=== PATIENT | female | born 1985 | race American Indian/Alaskan Native ===

== ENCOUNTER 2018-07-09 08:33 | Emergency (ER) | payer OTHER ==
[2018-07-09 09:18] LABS: Basophils % (Auto) 0.4 % (0.0-1.8); Eosinophils % (Auto) 0.6 % (0.0-4.3); Hematocrit 33.1 % (30.3-42.9); Hemoglobin 11.2 gm/dl (10.1-14.3); Lymphocytes # (Auto) 1.9 K/mm3 (1.2-5.4); Lymphocytes % (Auto) 24.7 % (13.4-35.0); Mean Corpuscular HGB Conc 34 % (30-34); Mean Corpuscular Hemoglobin 27 pg (28-32); Mean Corpuscular Volume 78 fl (79-97); Monocytes # (Auto) 0.8 K/mm3 (0.0-0.8); Monocytes % (Auto) 9.9 % (0.0-7.3); Platelet Count 251 K/mm3 (140-440); Red Blood Count 4.24 M/mm3 (3.65-5.03); Red Cell Distribution Width 14.8 % (13.2-15.2)
[2018-07-09 09:39] LABS: Bilirubin,Urine NEG (Negative); Blood,Urine SM (Negative); Color,Urine Yellow (Yellow); Mucus,Urine FEW /HPF
[2018-07-09 09:44] VITALS: BP 136/91
--- NOTE | 2018-07-09 10:14 | Emergency Department Report ---
HPI - General Chief Complaint: Vaginal Bleeding Time Seen by Provider: 07/09/18 09:53 - HPI HPI: 33-year-old -[place] female presents to the emergency department with complaint of some vaginal bleeding while that started earlier today, about 4 AM. She says that it stopped prior to coming into the emergency department but then started up again once she arrived here. She says it is a mild amount but sometimes when she goes to urinate she will have some clots come out. She denies any significant abdominal or pelvic pain but occasionally has some mild cramping intermittently. She says that the cramping intensity is less than her usual menstrual cycles. Patient does have a history of hypertension and/or questionable preeclampsia and is on labetalol and nifedipine. With this she is with one live child. Her [facility] is [facility]. She takes vitamins. ED Past Medical Hx - Past Medical History Previous Medical History?: Yes Hx Hypertension: Yes - Surgical History Past Surgical History?: Yes Additional Surgical History: c section x 1 - Social History Smoking Status: Never Smoker Substance Use Type: None - Medications Home Medications: Home Medications Medication Instructions Recorded Confirmed Last Taken Type Cyclobenzaprine HCl [Flexeril] 10 mg PO QDAY #15 tablet 10/30/13 Unknown Rx Ibuprofen [Motrin 800 MG tab] 800 mg PO TID PRN #15 tablet 10/30/13 Unknown Rx Lisinopril/Hydrochlorothiazide 1 tab PO QDAY #30 tablet 10/30/13 Unknown Rx [Zestoretic 10-12.5 mg] oxyCODONE /ACETAMINOPHEN [Percocet 1 tab PO Q6HR PRN #15 tablet 10/30/13 Unknown Rx 5/325 mg] ED Review of Systems ROS: Stated complaint: /BLEEDING Other details as noted in HPI Comment: All other systems reviewed and negative Constitutional: denies: chills, fever Eyes: denies: eye pain, eye discharge, vision change ENT: denies: ear pain, throat pain Respiratory: denies: cough, shortness of breath, wheezing Cardiovascular: denies: chest pain, palpitations Gastrointestinal: denies: abdominal pain, nausea, diarrhea Genitourinary: other (vaginal bleeding). denies: dysuria, discharge Musculoskeletal: denies: back pain, joint swelling, arthralgia Skin: denies: rash, lesions Neurological: denies: headache, weakness, paresthesias Physical Exam - Physical Exam Vital Signs: Vital Signs 07/09/18 07/09/18 07/09/18 08:46 09:26 09:30 Temperature 99.4 F Pulse Rate 98 H Respiratory 18 Rate Blood Pressure 152/100 136/91 O2 Sat by Pulse 100 94 98 Oximetry Physical Exam: GENERAL: The patient is well-developed well-nourished. HENT: Normocephalic. Atraumatic. Patient has moist mucous membranes. EYES: Extraocular motions are intact. Pupils equal reactive to light bilaterally. NECK: Supple. Trachea is midline. CHEST/LUNGS: Clear to auscultation. There is no respiratory distress noted. HEART/CARDIOVASCULAR: Regular. There is no tachycardia. There is no murmur. ABDOMEN: Abdomen is soft, nontender. No guarding. Patient has normal bowel sounds. Obese habitus. SKIN: Skin is warm and dry. NEURO: The patient is awake, alert, and oriented. The patient is cooperative. The patient has no focal neurologic deficits. The patient has normal speech. MUSCULOSKELETAL: There is no tenderness or deformity. There is no limitation range of motion. There is no evidence of acute injury. ED Course Vital Signs 07/09/18 07/09/18 07/09/18 08:46 09:26 09:30 Temperature 99.4 F Pulse Rate 98 H Respiratory 18 Rate Blood Pressure 152/100 136/91 O2 Sat by Pulse 100 94 98 Oximetry ED Medical Decision Making - Lab Data Result diagrams: 07/09/18 09:04 - Radiology Data Radiology results: report reviewed EXAM: US OB gt; = 14 WEEKS FETUS HISTORY: , vag bleeding TECHNIQUE: Ultrasound evaluation of the gravid uterus PRIORS: None. FINDINGS: There is a single viable intrauterine with documented cardiac activity. Multiple ultrasound measurements are made to determine a composite gestational age. Nonspecific elevation of cephalic index at 85.1, upper limits of normal 83. Other ratios are within normal limits. There is no evidence of placenta previa or abruption. The maternal cervix is closed. The quantity of visualized amniotic fluid appears grossly normal. No sonographic abnormality in the visualized portion of the anatomy. Heart rate: 152 beats per minute position: Variable Placental position: Anterior, grade 0. Anterior placenta appears normal. There appears to be a nonspecific exophytic lobe of placenta posteriorly, from the posterior uterine wall by amniotic fluid. Possible accessory lobe of placenta is approximately 3.2 x 6.9 x 7.0 cm. This lobe appears to contain only peripheral blood flow. Differential for above described findings is fundal and posterior extension of placenta with a prominent retroplacental Sanchez. Maternal cervix average length: 3.2cm Ultrasound estimated gestational age: 15 week 6 days Ultrasound estimated delivery date: 12/25/2018 LMP estimated gestational age: 15 weeks 3 days LMP estimated delivery date: 12/28/2018 Maternal right ovary contains a nonspecific simple appearing cyst measuring 3 cm. This may be a corpus luteum. IMPRESSION: Single viable intrauterine with the above parameters Nonspecific elevation of cephalic index. Otherwise normal ratios 3 cm nonspecific simple appearing cyst in maternal right ovary may be a corpus luteum Nonspecific atypical placenta configuration posteriorly may reflect fundal and posterior lobe of placenta with prominent retro placental Sanchez. Differential includes anterior placenta with exophytic posterior lobe not contacting the uterine wall. Another possibility is large endometrial polyp. Followup may be useful Transcribed By: BAL Dictated By: CARMEN MCKINNEY MD Electronically Authenticated By: CARMEN MCKINNEY MD Signed Date/Time: 07/09/18 2382 - Medical Decision Making This patient presents with some mild vaginal bleeding that started last night. A little bit of pelvic cramping but no significant abdominal or pelvic sharp pains. Hemoglobin is stable at greater than 11. Vital signs stable throughout her ED course. Ultrasound shows a viable intrauterine at about 15 weeks and 3 days. There are some other nonspecific findings but nothing that shows any concern for the fetus at this time. Patient 's blood type was B+ and therefore no RhoGAM shot necessary. She has good follow-up with [facility] and has been encouraged to see them on Wednesday. She will return to the ER with any worsening of her symptoms or any acute distress. - Differential Diagnosis threatened miscarriage, , fibroids, spontaneous miscarriage Critical Care Time: No Critical care attestation.: If time is entered above; I have spent that time in minutes in the direct care of this critically ill patient, excluding procedure time. ED Disposition Clinical Impression: Threatened Qualifiers: Weeks of gestation: 15 weeks Qualified Code(s): Z3A.15 - 15 weeks gestation of Disposition: DC-01 TO HOME OR SELFCARE Is pt being admited?: No Condition: Stable Instructions: Threatened Miscarriage (ED), (ED) Additional Instructions: Please follow-up with your [facility] in the next few days. Return to the emergency department immediately with any worsening of her symptoms, increased vaginal bleeding, or with any acute distress. Continue with your vitamins. Referrals: [facility] [Provider Group] - [facility] Time of Disposition: 12:09
--- NOTE | 2018-07-09 11:59 | Ultrasound Report ---
FINAL REPORT EXAM: US OB > = 14 WEEKS FETUS HISTORY: , vag bleeding TECHNIQUE: Ultrasound evaluation of the gravid uterus PRIORS: None. FINDINGS: There is a single viable intrauterine with documented cardiac activity. Multiple ultrasound measurements are made to determine a composite gestational age. Nonspecific elevation of cephalic index at 85.1, upper limits of normal 83. Other ratios are within normal limits. There is no evidence of placenta previa or abruption. The maternal cervix is closed. The quantity of visualized amniotic fluid appears grossly normal. No sonographic abnormality in the visualized portion of the anatomy. Heart rate: 152 beats per minute position: Variable Placental position: Anterior, grade 0. Anterior placenta appears normal. There appears to be a nonspecific exophytic lobe of placenta posteriorly, from the posterior uterine wall by amniotic fluid. Possible accessory lobe of placenta is approximately 3.2 x 6.9 x 7.0 cm. This lobe appears to contain only peripheral blood flow. Differential for above described findings is fundal and posterior extension of placenta with a prominent retroplacental Sanchez. Maternal cervix average length: 3.2cm Ultrasound estimated gestational age: 15 week 6 days Ultrasound estimated delivery date: 12/25/2018 LMP estimated gestational age: 15 weeks 3 days LMP estimated delivery date: 12/28/2018 Maternal right ovary contains a nonspecific simple appearing cyst measuring 3 cm. This may be a corpus luteum. IMPRESSION: Single viable intrauterine with the above parameters Nonspecific elevation of cephalic index. Otherwise normal ratios 3 cm nonspecific simple appearing cyst in maternal right ovary may be a corpus luteum Nonspecific atypical placenta configuration posteriorly may reflect fundal and posterior lobe of placenta with prominent retro placental Sanchez. Differential includes anterior placenta with exophytic posterior lobe not contacting the uterine wall. Another possibility is large endometrial polyp. Followup may be useful
== END 2018-07-09 12:44 | disposition home or self-care (01) ==
LOC: ED 08:33
DX: O20.0 Threatened abortion (principal); I10 Essential (primary) hypertension; Z3A.15 15 weeks gestation of pregnancy
CPT/HCPCS: 36415; 76805; 81001; 84702; 85025; 86850; 86900; 86901; 99284

== ENCOUNTER 2018-07-14 07:48 | Inpatient (IN) | payer OTHER ==
--- NOTE | 2018-07-14 08:47 | Emergency Department Report ---
ED Female HPI - General Chief complaint: Vaginal Bleeding Stated complaint: VAGINAL BLEEDING Time Seen by Provider: 07/14/18 08:47 Source: patient, EMS Mode of arrival: Stretcher Limitations: No Limitations - History of Present Illness Initial comments: Patient said she came back from a walk this morning and noticed she is having vaginal bleeding. She says she is . She also has abdominal cramping associated with neck pain. MD Complaint: vaginal bleeding -: Sudden, This morning Location: perineum Radiation: non-radiating Severity: moderate Severity scale (0 -10): 6 Quality: cramping Consistency: constant Improves with: none Worsens with: none Are you Now?: Yes Associated Symptoms: vaginal bleeding, abdominal pain. denies: headaches, shortness of breath - Related Data Sexually active: Yes Previous Rx's Medication Instructions Recorded Last Taken Type Cyclobenzaprine HCl [Flexeril] 10 mg PO QDAY #15 tablet 10/30/13 Unknown Rx Ibuprofen [Motrin 800 MG tab] 800 mg PO TID PRN #15 tablet 10/30/13 Unknown Rx Lisinopril/Hydrochlorothiazide 1 tab PO QDAY #30 tablet 10/30/13 Unknown Rx [Zestoretic 10-12.5 mg] oxyCODONE /ACETAMINOPHEN [Percocet 1 tab PO Q6HR PRN #15 tablet 10/30/13 Unknown Rx 5/325 mg] Allergies Allergy/AdvReac Type Severity Reaction Status Date / Time No Known Allergies Allergy Unverified 10/30/13 15:58 ED Review of Systems ROS: Stated complaint: VAGINAL BLEEDING Other details as noted in HPI Comment: All other systems reviewed and negative Constitutional: denies: chills, fever Eyes: denies: eye pain, eye discharge ENT: denies: ear pain, throat pain, dental pain Cardiovascular: denies: chest pain, palpitations, dyspnea on exertion Endocrine: no symptoms reported Gastrointestinal: abdominal pain. denies: nausea, vomiting, diarrhea Genitourinary: denies: urgency, dysuria, frequency Musculoskeletal: denies: back pain, joint swelling Skin: denies: rash, lesions, change in color Neurological: denies: headache, weakness, numbness Psychiatric: denies: anxiety, depression Hematological/Lymphatic: denies: easy bleeding, easy bruising ED Past Medical Hx - Past Medical History Hx Hypertension: Yes - Surgical History Additional Surgical History: c section x 1 - Social History Smoking Status: Never Smoker Substance Use Type: None - Medications Home Medications: Home Medications Medication Instructions Recorded Confirmed Last Taken Type Cyclobenzaprine HCl [Flexeril] 10 mg PO QDAY #15 tablet 10/30/13 Unknown Rx Ibuprofen [Motrin 800 MG tab] 800 mg PO TID PRN #15 tablet 10/30/13 Unknown Rx Lisinopril/Hydrochlorothiazide 1 tab PO QDAY #30 tablet 10/30/13 Unknown Rx [Zestoretic 10-12.5 mg] oxyCODONE /ACETAMINOPHEN [Percocet 1 tab PO Q6HR PRN #15 tablet 10/30/13 Unknown Rx 5/325 mg] ED Physical Exam - General Limitations: No Limitations General appearance: alert, in no apparent distress, obese - Head Head exam: Present: atraumatic, normocephalic, normal inspection - Eye Eye exam: Present: normal appearance, PERRL, EOMI Pupils: Present: normal accommodation - ENT ENT exam: Present: normal exam, normal orophraynx, mucous membranes moist - Neck Neck exam: Present: normal inspection, full ROM. Absent: tenderness - Respiratory Respiratory exam: Present: normal lung sounds bilaterally. Absent: respiratory distress, wheezes, rales, rhonchi, stridor - Cardiovascular Cardiovascular Exam: Present: regular rate, normal rhythm, normal heart sounds - GI/Abdominal GI/Abdominal exam: Present: soft, normal bowel sounds. Absent: distended, tenderness, guarding, rebound, rigid - Rectal Rectal exam: Present: deferred - External exam: Present: normal external exam. Absent: erythema, lesions, lacerations Speculum exam: Present: vaginal bleeding, other (Web Services Manager was RICO Manzo.). Absent: laceration Bi-manual exam: Present: other (bimanual examination was not done.) - Extremities Exam Extremities exam: Present: normal inspection, full ROM, normal capillary refill. Absent: tenderness - Back Exam Back exam: Present: normal inspection, full ROM. Absent: tenderness, CVA tenderness (R), CVA tenderness (L) - Neurological Exam Neurological exam: Present: alert, oriented X3, CN II-XII intact - Psychiatric Psychiatric exam: Present: normal affect, normal mood - Skin Skin exam: Present: warm, dry, intact, normal color. Absent: rash ED Course Vital Signs 07/14/18 07/14/18 08:44 08:46 Temperature 98.5 F Pulse Rate 18 L Respiratory 18 18 Rate Blood Pressure 130/98 [Left] O2 Sat by Pulse 100 99 Oximetry - Reevaluation(s) Reevaluation #1: 07/14/18 11:[address] Trammell the [employer] doctor product marketing consultant. He wants patient to be admitted to her service for further evaluation and management. ED Medical Decision Making - Lab Data Result diagrams: 07/14/18 08:54 07/14/18 08:54 - Radiology Data Radiology results: report reviewed, image reviewed - Medical Decision Making Threatened miscarriage. Vaginal Bleeding. Critical care attestation.: If time is entered above; I have spent that time in minutes in the direct care of this critically ill patient, excluding procedure time. ED Disposition Clinical Impression: Threatened , Vaginal bleeding Qualifiers: Weeks of gestation: 16 weeks Qualified Code(s): Z3A.16 - 16 weeks gestation of Disposition: OP ADMIT IP TO THIS HOSP Is pt being admited?: Yes Does the pt Need Aspirin: No Condition: Stable Referrals: PRIMARY CARE, [Primary Care Provider] - 3-5 Days Time of Disposition: 11:10
[2018-07-14] MEDS ORDERED: NACL 0.9% 1000 ML 1,000 ML IV ONE (08:51)
[2018-07-14 09:14] LABS: Basophils # (Auto) 0.1 K/mm3 (0.0-0.1); Basophils % (Auto) 0.5 % (0.0-1.8); Hematocrit 30.2 % (30.3-42.9); Lymphocytes # (Auto) 1.3 K/mm3 (1.2-5.4); Lymphocytes % (Auto) 10.7 % (13.4-35.0); Mean Corpuscular HGB Conc 33 % (30-34); Mean Corpuscular Hemoglobin 27 pg (28-32); Mean Corpuscular Volume 80 fl (79-97); Monocytes # (Auto) 0.5 K/mm3 (0.0-0.8); Platelet Count 253 K/mm3 (140-440); Red Blood Count 3.77 M/mm3 (3.65-5.03); Red Cell Distribution Width 14.9 % (13.2-15.2)
[2018-07-14 09:37] LABS: Alanine Aminotransferase 22 units/L (7-56); BUN/Creatinine Ratio 13; Blood Urea Nitrogen 9 mg/dL (7-17); Calcium 9.7 mg/dL (8.4-10.2); Hemolysis Index 0
--- NOTE | 2018-07-14 09:48 | Ultrasound Report ---
OB ULTRASOUND History vaginal bleeding. Technique: Transabdominal ultrasound with Doppler interrogation. Gestation: Single Position: Cephalic Amniotic Fluid: Within normal limits Placenta: Posterior Placental Grade: 1 The placenta is poorly imaged on today's exam. No endovaginal imaging was performed. Heart Rate: 159 BPM Cervical length: The cervix is not confidently identified. There appears to be fluid in the cervical canal or vaginal canal. The cervix may be dilated. BPD: 3.4 cm = 16 w 4 d HC: 12.9 cm = 16 w 4 d AC: 9.5 cm = 15 w 5 d FL: 2.4 cm = 17 w 2 d HC/AC Ratio: 1.35 Cephalic Index: 77.9 Estimated Weight: 158 grams Clinical age = 16 w 1 d EDC: 12/28/18 US Gest. Age = 16 w 4 d EDC: 12/25/18 IMPRESSION: Viable, single intrauterine as described. The cervix is poorly imaged but it appears to be patent. There is suggestion of bulging of membranes.
[2018-07-14 10:11] LABS: INR 1.01 (0.87-1.13)
[2018-07-14 10:12] LABS: Partial Thromboplastin Time 25.8 Sec. (24.2-36.6)
[2018-07-14] MEDS ORDERED: MORPHINE IV ONE (11:14)
[2018-07-14 11:23] LABS: Bacteria,Urine 2+ /HPF (Negative); Bilirubin,Urine NEG (Negative); Blood,Urine LG (Negative); Color,Urine Red (Yellow); Urobilinogen,Urine < 2.0 mg/dL (<2.0)
[2018-07-14] MEDS ORDERED: ZOFRAN IV ONE (12:06)
[2018-07-14] MEDS ORDERED: ZOFRAN ONE (12:09)
[2018-07-14] MEDS ORDERED: MORPHINE ONE (12:10)
[2018-07-14] MEDS ORDERED: TYLENOL PO PRN (12:52)
[2018-07-14] MEDS ORDERED: COLACE PO PRN (12:52)
[2018-07-14] MEDS ORDERED: ZOFRAN IV PRN (12:52)
--- NOTE | 2018-07-14 13:39 | History and Physical Report ---
History of Present Illness Date of examination: 07/14/18 Date of admission: 07/14/18 11:14 Chief complaint: at 16 weeks and 1 day with vaginal bleeding. History of present illness: Patient is a 33 year old , LMP 03/15/18, EDC 12/28/18 who is at 16 weeks and 1 day gestation who presented to the ER this morning complaining of having vaginal bleeding. As per the patient, she suddenly felt a gush of blood at around 4 AM and started to have severe cramps. She called the ambulance. On arrival to the ER, the bleeding was heavy. Initial exam (speculum only) showed blood in the vagina. She was given IV morphine. Vitals were stable. She is a patient of [facility] who has a history of chronic HTN. She has been on labetolol 400 mg BID with 200 mg mid-day and nifedipine 90 mg QD. She has seen [facility] for a history of superimposed severe pre-eclampsia and delivery at 32 weeks in 06/2017. She was seen in the office twice this week for elevated BP. 24 -hr urine on 05/25 was 170 mg. She also had vaginal spotting 4 days ago which stopped spontaneously. Exam: cervix closed and long. Mild bleeding. Sonogram showed FH at 159 bpm. H/H stable. Past History Past Medical History: hypertension, other (PCOS, obesity.) Past Surgical History: section Family/Genetic History: none Social history: no significant social history - Obstetrical History Expected Date of Delivery: 12/28/18 Actual Gestation: 16 Week(s) 1 Day(s) : 2 Para: 1 Number of Pregnancies: 1 Number of Living Children: 1 #1 Gender: Female year: 2[age][birth year] Birthweight: 1.531 kg Method of Delivery: Gestational age at delivery: 32 Complications: other (superimposed pre-eclampsia.) Medications and Allergies Allergies Allergy/AdvReac Type Severity Reaction Status Date / Time No Known Allergies Allergy Unverified 10/30/13 15:58 Home Medications Medication Instructions Recorded Confirmed Last Taken Type Cyclobenzaprine HCl [Flexeril] 10 mg PO QDAY #15 tablet 10/30/13 Unknown Rx Ibuprofen [Motrin 800 MG tab] 800 mg PO TID PRN #15 tablet 10/30/13 Unknown Rx Lisinopril/Hydrochlorothiazide 1 tab PO QDAY #30 tablet 10/30/13 Unknown Rx [Zestoretic 10-12.5 mg] oxyCODONE /ACETAMINOPHEN [Percocet 1 tab PO Q6HR PRN #15 tablet 10/30/13 Unknown Rx 5/325 mg] Active Meds: Active Medications Acetaminophen (Tylenol) 650 mg PO Q4H PRN PRN Reason: Pain MILD(1-3)/Fever >100.5/ASTOR[place] Docusate Sodium (Colace) 100 mg PO Q12H PRN PRN Reason: Constipation Lactated Ringer's (Lactated Ringers) 1,000 mls @ 125 mls/hr IV DIRECT CORIE Multivitamins/Iron/Calcium ( Vitamin) 1 each PO QDAY CORIE Ondansetron HCl (Zofran) 4 mg IV Q6H PRN PRN Reason: Nausea And Vomiting - Vital Signs Vital signs: Vital Signs Temp Pulse Resp BP Pulse Ox 98.5 F 18 L 18 130/98 100 07/14/18 08:44 07/14/18 08:44 07/14/18 08:44 07/14/18 08:44 07/14/18 08:44 Temp Pulse Resp BP Pulse Ox 98.6 F 90 16 151/96 99 07/14/18 12:13 07/14/18 13:15 07/14/18 12:13 07/14/18 13:15 07/14/18 12:13 - Physical Exam Cardiovascular: Normal S1, Normal S2 Lungs: Positive: Clear to auscultation Vulva: both: normal Adnexa: both: normal Deep Tendon Reflex Grade: Normal +2 - Obstetrical Cervical Dilatation: 0 Cervical Effacement Percentage: 0 Uterine Contraction Pattern: Absent Results Result Diagrams: 07/14/18 08:54 07/14/18 08:54 Abnormal lab results 07/14/18 07/14/18 07/14/18 Range/Units 08:54 08:54 08:54 WBC 12.1 H (4.5-11.0) K/mm3 Hgb 10.0 L (10.1-14.3) gm/dl Hct 30.2 L (30.3-42.9) % MCH 27 L (28-32) pg Lymph % (Auto) 10.7 L (13.4-35.0) % Seg Neutrophils % 84.8 H (40.0-70.0) % Seg Neutrophils # 10.3 H (1.8-7.7) K/mm3 Sodium 134 L (137-145) mmol/L Glucose 122 H (65-100) mg/dL HCG, Quant 06775 H (0-4) mIU/mL Ur Specific [place] (1.003-1.030) 07/14/18 Range/Units 10:42 WBC (4.5-11.0) K/mm3 Hgb (10.1-14.3) gm/dl Hct (30.3-42.9) % MCH (28-32) pg Lymph % (Auto) (13.4-35.0) % Seg Neutrophils % (40.0-70.0) % Seg Neutrophils # (1.8-7.7) K/mm3 Sodium (137-145) mmol/L Glucose (65-100) mg/dL HCG, Quant (0-4) mIU/mL Ur Specific [place] 1.002 L (1.003-1.030) All other labs normal. Assessment and Plan - Patient Problems (1) 16 weeks gestation of Current Visit: Yes Status: Acute (2) Threatened Current Visit: Yes Status: Acute Plan to address problem: Monitor bleeding, pad count. Repeat CBC. Iron BID. FH with doppler Q 3-4 hrs. Sonogram tonight if bleeding worsens. (3) Vaginal bleeding before 22 weeks gestation Current Visit: Yes Status: Acute (4) Chronic hypertension affecting Current Visit: Yes Status: Acute Plan to address problem: Continue labetolol and nifedipine.
[2018-07-14 14:46] LABS: Basophils % (Auto) 0.4 % (0.0-1.8); Hematocrit 29.1 % (30.3-42.9); Hemoglobin 9.5 gm/dl (10.1-14.3); Lymphocytes # (Auto) 1.5 K/mm3 (1.2-5.4); Lymphocytes % (Auto) 12.4 % (13.4-35.0); Mean Corpuscular HGB Conc 33 % (30-34); Mean Corpuscular Hemoglobin 27 pg (28-32); Mean Corpuscular Volume 81 fl (79-97); Monocytes # (Auto) 0.4 K/mm3 (0.0-0.8); Platelet Count 238 K/mm3 (140-440); Red Cell Distribution Width 15.4 % (13.2-15.2)
[2018-07-14] MEDS: PROCARDIA XL PO SCH (16:04)
--- NOTE | 2018-07-14 20:40 | Ultrasound Report ---
FINAL REPORT PROCEDURE: US OB FOLLOW UP TECHNIQUE: Real-time limited sonographic examination was performed for evaluation of size, position, heartbeat, fluid volume for each fetus with image documentation (1 or more fetuses). CPT 27586 HISTORY: HEART RATE COMPARISON: No prior studies are available for comparison. FINDINGS: Fetus is in a cephalic presentation. The heart rate is 163 beats per minute. IMPRESSION: heart rate is 163 beats per minute
[2018-07-14] MEDS: NORMODYNE PO SCH (23:18)
--- NOTE | 2018-07-15 09:05 | Event Note ---
Date: 07/15/18 Assumed care of above. Patient is a 33 year old , LMP 03/15/18, EDC 04/12 who is at 16 weeks and 2 day gestation who presented to the ER this morning complaining of having vaginal bleeding. She is a patient of [facility], this is complicated by short interval and chronic HTN. She has been on labetolol 400 mg BID with 200 mg mid-day and nifedipine 90 mg QD. She has seen [facility] for a history of superimposed severe pre-eclampsia and delivery at 32 weeks in 06/2017. She was seen in the office twice this week for elevated BP. 24-hr urine on 05/25 was 170 mg. She also had vaginal spotting 4 days ago which stopped spontaneously. Initial Exam: cervix closed and long. Mild bleeding. Sonogram showed FH at 159 bpm. Patient has been stable on the floor. On my exam today, patient's Pad won for over an hour is lightly stained with blood. Ultrasound obtained at 7 AM this morning has not been read officially. But does appear to show long cervix at over 3 cm. FHT present On digital exam, she's long thick and closed. My gloved finger had minimal old dark blood She's currently not having any contractions Plan is to continue observation but increase ambulation and activity. If she remains stable, will consider discharge home in 24 hours Await official ultrasound report
[2018-07-15] MEDS: NORMODYNE PO SCH ×2 (11:01→21:55)
[2018-07-15] MEDS: PROCARDIA XL PO SCH (11:03)
[2018-07-15] MEDS: PRENATAL VITAMIN PO SCH (11:03)
[2018-07-15] MEDS: LACTATED RINGERS 1,000 ML IV SCH ×3 (11:07→23:49)
--- NOTE | 2018-07-15 18:08 | Ultrasound Report ---
FINAL REPORT EXAM: US OB LIMITED HISTORY: vaginal bleeding TECHNIQUE: Ultrasound obstetrical transvaginal and transabdominal PRIORS: Correlation made to prior exam July 14, 2018 and July 09, 2018 FINDINGS: There is a single intrauterine gestation present with heart rate of 162 beats per minute Placenta appears posterior. Overlying this internal os there is some heterogeneous tissue which may reflect an exophytic placental lobe possibly with retroplacental Sanchez evaluation of the placental edge is limited due to presence of the tissue at the internal loss. There is small amount of fluid seen within the cervix. No evidence for tunneling or dilatation of the cervical os. IMPRESSION: Intrauterine gestation with heart rate of 162 beats per minute Findings are suggestive of a exophytic placental lobe overlying the internal cervical os with small amount of fluid seen within the cervix. Continued followup recommended
[2018-07-16] MEDS: NORMODYNE PO SCH ×2 (10:36→22:21)
[2018-07-16] MEDS: PRENATAL VITAMIN PO SCH (10:38)
[2018-07-16] MEDS: PROCARDIA XL PO SCH (10:39)
--- NOTE | 2018-07-16 15:31 | Progress Note ---
Assessment and Plan - Patient Problems (1) 16 weeks gestation of Onset Date: 07/16/18 Current Visit: Yes Status: Acute Plan to address problem: A: IUP @ 16 3/7 weeks Vaginal bleeding with heterogeneous tissue at the cervical os - ? edge of placenta P: Continue Observation (2) Chronic hypertension affecting Onset Date: 07/16/18 Current Visit: Yes Status: Acute (3) Vaginal bleeding before 22 weeks gestation Onset Date: 07/16/18 Current Visit: Yes Status: Acute Subjective - Subjective Date of service: 07/16/18 Principal diagnosis: IUP @ 16 3/7 weeks Interval history: Patient is a 33 year old , LMP 03/15/18, EDC 12/28/18 who is at 16 weeks and 3 day gestation who presented to the ER complaining of having vaginal bleeding. She is a patient of [facility], this is complicated by short interval and chronic HTN. She has been on labetolol 400 mg BID with 200 mg mid-day and nifedipine 90 mg QD. She has seen [facility] for a history of superimposed severe pre-eclampsia and delivery at 32 weeks in 06/2017. She was seen in the office twice this week for elevated BP's , and 24-hr urine on was 170 mg. She is currently admitted for Observation for vaginal spotting which has continued even today upon standing. Ob u/s showed a posterior Grade 1 placenta, with cervical length 4.1, but heterogeneous tissue 6.2 x 4.1cm at the internal os. Patient reports: vaginal bleeding, movement normal, no new complaints, no loss of fluid, no contractions Objective - Vital Signs Vital Signs: Vital Signs - 12hr 07/16/18 07/16/18 07/16/18 07:33 07:35 07:43 Temperature 99 F Pulse Rate 92 H 92 H 88 Respiratory 18 Rate Blood Pressure 126/76 121/70 Blood Pressure 126/76 [Left] 07/16/18 07/16/18 07/16/18 10:36 10:38 11:27 Temperature Pulse Rate 104 H 104 H 105 H Respiratory Rate Blood Pressure 130/86 130/86 134/77 Blood Pressure [Left] 07/16/18 11:45 Temperature 99 F Pulse Rate 105 H Respiratory 18 Rate Blood Pressure Blood Pressure 134/77 [Left] - Exam Abdomen: Present: normal appearance, soft FHR: auscultation normal Uterine Contraction Monitor Mode: External - Labs Labs: Abnormal Labs 07/14/18 07/14/18 07/14/18 08:54 08:54 08:54 WBC 12.1 H RBC Hgb 10.0 L Hct 30.2 L MCH 27 L RDW Lymph % (Auto) 10.7 L Seg Neutrophils % 84.8 H Seg Neutrophils # 10.3 H Sodium 134 L Glucose 122 H HCG, Quant [id number] H Ur Specific [place] 07/14/18 07/14/18 10:42 14:23 WBC 11.8 H RBC 3.60 L Hgb 9.5 L Hct 29.1 L MCH 27 L RDW 15.4 H Lymph % (Auto) 12.4 L Seg Neutrophils % 84.2 H Seg Neutrophils # 9.9 H Sodium Glucose HCG, Quant Ur Specific [place] 1.002 L Laboratory Results - last 24 hr 07/14/18 10:42 C.trachomatis DNA (SDA) Not detected N.gonorrhoeae DNA (SDA) Not detected - Results US- obstetric: report reviewed
[2018-07-17] MEDS: PRENATAL VITAMIN PO SCH (10:16)
[2018-07-17] MEDS: NORMODYNE PO SCH ×2 (10:16→22:30)
[2018-07-17] MEDS: PROCARDIA XL PO SCH (10:17)
--- NOTE | 2018-07-17 15:21 | Progress Note ---
Assessment and Plan - Patient Problems (1) 16 weeks gestation of Onset Date: 07/16/18 Current Visit: Yes Status: Acute Plan to address problem: A: IUP @ 16 4/7 weeks Vaginal bleeding with heterogeneous tissue at the cervical os - ? edge of placenta P: Continue Observation [facility] consultation Possible discharge to home in 24hrs if bleeding has resolved. (2) Chronic hypertension affecting Onset Date: 07/16/18 Current Visit: Yes Status: Acute (3) Vaginal bleeding before 22 weeks gestation Onset Date: 07/16/18 Current Visit: Yes Status: Acute Subjective - Subjective Date of service: 07/17/18 Principal diagnosis: IUP @ 16 4/7 weeks Interval history: Patient is a 33 year old , LMP 03/15/18, EDC 12/28/18 who is at 16 weeks and 4 day gestation who presented to the ER complaining of having vaginal bleeding. She is a patient of [facility], this is complicated by short interval and chronic HTN. She has been on labetolol 400 mg BID with 200 mg mid-day and nifedipine 90 mg QD. She has seen [facility] for a history of superimposed severe pre-eclampsia and delivery at 32 weeks in 06/2017. She was seen in the office twice this week for elevated BP's , and 24-hr urine on was 170 mg. She is currently admitted for Observation for vaginal spotting which has continued even today upon standing. Ob u/s showed a posterior Grade 1 placenta, with cervical length 4.1, but heterogeneous tissue 6.2 x 4.1cm at the internal os. Today she states the bleeding is minimal. Patient reports: vaginal bleeding, movement normal, no new complaints, no loss of fluid, no contractions Objective - Vital Signs Vital Signs: Vital Signs - 12hr 07/17/18 07/17/18 07/17/18 08:02 08:03 10:16 Temperature 98.3 F Pulse Rate 90 90 96 H Respiratory 18 Rate Blood Pressure 114/53 118/66 Blood Pressure 114/53 [Left] 07/17/18 07/17/18 10:17 11:42 Temperature 98.1 F Pulse Rate 96 H 92 H Respiratory 20 Rate Blood Pressure 118/66 122/75 Blood Pressure 122/75 [Left] - Exam Cardiovascular: Regular rate Abdomen: Present: normal appearance, soft Uterus: Present: normal FHR: auscultation normal - Labs Labs: Abnormal Labs 07/14/18 07/14/18 07/14/18 08:54 08:54 08:54 WBC 12.1 H RBC Hgb 10.0 L Hct 30.2 L MCH 27 L RDW Lymph % (Auto) 10.7 L Seg Neutrophils % 84.8 H Seg Neutrophils # 10.3 H Sodium 134 L Glucose 122 H HCG, Quant [id number] H Ur Specific [place] 07/14/18 07/14/18 10:42 14:23 WBC 11.8 H RBC 3.60 L Hgb 9.5 L Hct 29.1 L MCH 27 L RDW 15.4 H Lymph % (Auto) 12.4 L Seg Neutrophils % 84.2 H Seg Neutrophils # 9.9 H Sodium Glucose HCG, Quant Ur Specific [place] 1.002 L
[2018-07-18 08:44] LABS: Hemoglobin 8.4 gm/dl (10.1-14.3); Mean Corpuscular HGB Conc 34 % (30-34); Mean Corpuscular Hemoglobin 27 pg (28-32); Mean Corpuscular Volume 80 fl (79-97); Platelet Count 259 K/mm3 (140-440); Red Blood Count 3.13 M/mm3 (3.65-5.03)
--- NOTE | 2018-07-18 09:05 | Progress Note ---
Assessment and Plan - Patient Problems (1) Vaginal bleeding before 22 weeks gestation Onset Date: 07/16/18 Current Visit: Yes Status: Acute Plan to address problem: Reviewed US. Currently no bleeding events overnight. Plan to await [facility] consultation to guide in next steps, follow-up and patient discharge. Discussed pelvic rest with patient today. Subjective - Subjective Principal diagnosis: IUP @ 16 4/7 weeks Interval history: She states her last episode of vaginal bleeding was before 330pm yesterday. She reports that episode as a small amount of vaginal spotting. Patient reports: vaginal bleeding, movement normal, no new complaints, no loss of fluid, no contractions Objective - Vital Signs Vital Signs: Vital Signs - 12hr 07/17/18 07/17/18 07/18/18 22:30 23:09 00:15 Temperature 98.2 F Pulse Rate 93 H 93 H 88 Respiratory Rate Blood Pressure 142/93 142/93 Blood Pressure 142/93 [Left] O2 Sat by Pulse Oximetry 07/18/18 07/18/18 07/18/18 04:30 04:43 08:13 Temperature 98.6 F 98.3 F Pulse Rate 90 90 91 H Respiratory 18 18 Rate Blood Pressure 139/76 121/60 Blood Pressure 139/76 121/60 [Left] O2 Sat by Pulse 100 Oximetry - Exam Uterus: Present: other (Perineum dry/ pad dry) FHR: auscultation normal, other (FHT 155) - Labs Labs: Abnormal Labs 07/14/18 07/14/18 07/14/18 08:54 08:54 08:54 WBC 12.1 H RBC Hgb 10.0 L Hct 30.2 L MCH 27 L RDW Lymph % (Auto) 10.7 L Seg Neutrophils % 84.8 H Seg Neutrophils # 10.3 H Sodium 134 L Glucose 122 H HCG, Quant [id number] H Ur Specific [place] 07/14/18 07/14/18 07/18/18 10:42 14:23 08:21 WBC 11.8 H RBC 3.60 L 3.13 L Hgb 9.5 L 8.4 L Hct 29.1 L 25.0 L MCH 27 L 27 L RDW 15.4 H Lymph % (Auto) 12.4 L Seg Neutrophils % 84.2 H Seg Neutrophils # 9.9 H Sodium Glucose HCG, Quant Ur Specific [place] 1.002 L Laboratory Results - last 24 hr 07/18/18 08:21 WBC 8.6 RBC 3.13 L Hgb 8.4 L Hct 25.0 L MCV 80 MCH 27 L MCHC 34 RDW 15.0 Plt Count 259
[2018-07-18] MEDS: NORMODYNE PO SCH (10:01)
[2018-07-18] MEDS: PROCARDIA XL PO SCH (10:07)
[2018-07-18] MEDS: PRENATAL VITAMIN PO SCH (10:07)
--- NOTE | 2018-07-18 12:19 | Consultation ---
History of Present Illness Reason for consult: other (Patient is a 33 year old , LMP 03/15/18, EDC 12/28/18 who is at 16 weeks and 5 day gestation who presented to the ER complaining of having vaginal bleeding s/p coitus . She is a patient of [facility], this is complicated by short interval and chronic HTN. She has been on labetolol 400 mg BID with 200 mg mid-day and nifedipine 90 mg QD. She has seen [facility] for Morbid Obesity and a history of superimposed severe pre-eclampsia and delivery at 32 weeks in 06/2017. Baseline Protein 24- hr urine on 05/25/18 was 170 mg. Since 07/14/18 she has been admitted for vaginal bleeding. [facility] US reveals a posterior Grade 1 placenta, with cervical length 4.1cm , but heterogeneous tissue 6.2 x 4.1cm at the internal os. Today she states NO vaginal bleeding , cramping, and pelvic pressure ) Past History Past Medical History: hypertension, other (PCOS, obesity.) Past Surgical History: section Family/Genetic History: none - Obstetrical History : 2 #1 Infant Gender: Female year: 2,[birth year] Birthweight: 1.531 kg Method of Delivery: Gestational age at delivery: 32 Complications: other (superimposed pre-eclampsia.) Medications and Allergies Allergies Allergy/AdvReac Type Severity Reaction Status Date / Time No Known Allergies Allergy Unverified 10/30/13 15:58 Home Medications Medication Instructions Recorded Confirmed Last Taken Type Aspirin BABY CHEW TAB 81 tab PO DAILY 07/15/18 07/15/18 07/14/18 10:00 History 1 Labetalol [Normodyne TAB] 200 tab PO QPM 07/15/18 07/15/18 07/13/18 14:00 History 200 Labetalol [Normodyne] 400 mg PO BID 07/15/18 07/15/18 07/14/18 10:00 History 400 Nifedipine 90 tab PO DAILY 07/15/18 07/15/18 07/15/18 10:00 History 90 Multivitamin Tablet 1 tab PO DAILY 07/15/18 07/15/18 07/14/18 10:00 History 1 Active Meds: Active Medications Acetaminophen (Tylenol) 650 mg PO Q4H PRN PRN Reason: Pain MILD(1-3)/Fever >100.5/[place] Last Admin: 07/15/18 11:06 Dose: 650 mg Docusate Sodium (Colace) 100 mg PO Q12H PRN PRN Reason: Constipation Famotidine (Pepcid) 20 mg PO QHS [facility] Last Admin: 07/17/18 23:10 Dose: 20 mg Lactated Ringer's (Lactated Ringers) 1,000 mls @ 125 mls/hr IV DIRECT [facility] Last Admin: 07/15/18 23:49 Dose: 125 mls/hr Labetalol HCl (Normodyne) 400 mg PO BID [facility] Last Admin: 07/18/18 10:01 Dose: 400 mg Multivitamins/Iron/Calcium ( Vitamin) 1 each PO QDAY [facility] Last Admin: 07/18/18 10:07 Dose: 1 each Nifedipine (Procardia Xl) 90 mg PO QDAY [facility] Last Admin: 07/18/18 10:07 Dose: 90 mg Ondansetron HCl (Zofran) 4 mg IV Q6H PRN PRN Reason: Nausea And Vomiting Review of Systems Constitutional: no fever, no fatigue, no weakness, no malaise Eyes: deferred Ears, nose, mouth and throat: deferred Cardiovascular: high blood pressure (CHTN under meical therapy ), no orthopnea, no palpitations, no rapid/irregular heart beat, no syncope, no lightheadedness, no shortness of breath Respiratory: no shortness of breath Breasts: deferred Gastrointestinal: no abdominal pain Genitourinary: other (no cramping ), no vaginal bleeding (on 07/18/18), no vaginal discharge, no leakage of fluid, no pelvic pain Endocrine: no palpatations - Vital Signs Vital signs: Vital Signs Temp Pulse Resp BP Pulse Ox 98.5 F 18 L 18 130/98 100 07/14/18 08:44 07/14/18 08:44 07/14/18 08:44 07/14/18 08:44 07/14/18 08:44 Temp Pulse Resp BP Pulse Ox 98.3 F 93 H 20 121/80 100 07/18/18 11:43 07/18/18 11:44 07/18/18 11:43 07/18/18 11:44 07/18/18 04:30 - Physical Exam Breasts: Positive: deferred Cardiovascular: Regular rate Lungs: Positive: Normal air movement Abdomen: Negative: tenderness, guarding Cervix: Positive: other (07/15/18 [facility] prelim ultrasound Cx length of 4.1 cm with no dilation and no funneling ) Uterus: Negative: enlarged, tender - Obstetrical FHR: auscultation normal (+FHT per doppler per RN) Results Result Diagrams: 07/18/18 08:21 07/14/18 08:54 Abnormal lab results 07/18/18 Range/Units 08:21 RBC 3.13 L (3.65-5.03) M/mm3 Hgb 8.4 L (10.1-14.3) gm/dl Hct 25.0 L (30.3-42.9) % MCH 27 L (28-32) pg All other labs normal. Ultrasound: report reviewed (see [facility] for full report ) Assessment and Plan A) -16.5 weeks - Admission since 07/14/18 for vaginal bleeding S/P coitus - Reported NO vaginal bleeding since 07/17/18 @ 330 pm with NO cramping and pelvic pressure - [facility] from 07/15/18 cx length of 4.1 cm - [facility] US concern for placental lobe vs placenta [place] - [facility] US revealed a posterior Grade 1 placenta, with cervical length 4.1cm , but heterogeneous tissue 6.2 x 4.1cm at the internal os. - Morbid obesity - PTD at 32 [id number] D/T History of Severe PreEclampsia ( under LDA therapy ) - CHTN adequate BP control under current medical regimen - History of PCOS - History of C/S - Anemia with HGb of 8.4 mg/dl - Positive FHT per recent doppler (RN) P) May consider discharge home evening of 07/18/18 with no active bleeding, cramping , maternal compromise , and cervical dilation Please repeat CBC prior to discharge Perform speculum exam Treat anemia upon discharge Discuss precautions Patient has a follow up appointment with [facility] 07/27/18
--- NOTE | 2018-07-18 18:53 | Discharge Summary ---
Providers - Providers Date of Admission: 07/14/18 11:14 Date of discharge: 07/18/18 Attending physician: CARINE SIFUENTES MD 07/14/18 10:49 Consult to Physician [CONS] Stat Comment: Consulting Provider: CARINE SIFUENTES Physician Instructions: Reason For Exam: Threatened Miscariage 07/17/18 16:52 Consult to Physician [CONS] Routine Comment: consult called to ans. service 07/17/2018 9713 Consulting Provider: NARCISA STEVENSON Physician Instructions: Reason For Exam: 16 weeks bleeding Primary care physician: WORM SORTER Hospitalization Reason for admission: IUP - , vaginal bleeding Laceration: none Other procedures: none complications: none Discharge diagnosis: other (IUP @ 16 5/7 weeks; Vaginal bleeding - resolved.) Hospital course: Patient is a 33 year old , LMP 03/15/18, EDC 12/28/18 who is at 16 weeks and 4 day gestation who presented to the ER complaining of having vaginal bleeding. She is a patient of [facility], this is complicated by short interval and chronic HTN. She has been on labetolol 400 mg BID with 200 mg mid-day and nifedipine 90 mg QD. She has seen [facility] for a history of superimposed severe pre-eclampsia and delivery at 32 weeks in 06/2017. She was seen in the office twice this week for elevated BP's , and 24-hr urine on was 170 mg. She is currently admitted for Observation for vaginal spotting which has continued even today upon standing. Ob u/s showed a posterior Grade 1 placenta, with cervical length 4.1, but heterogeneous tissue 6.2 x 4.1cm at the internal os. Today she states the bleeding is minimal. She was seen by [facility] and cleared for discharge home today - on PELVIC REST. Condition at discharge: Stable Disposition: [id number] TO HOME OR SELFCARE - Discharge Diagnoses (1) 16 weeks gestation of Status: Resolved (2) Chronic hypertension affecting Status: Chronic (3) Vaginal bleeding before 22 weeks gestation Status: Resolved Plan - Discharge Medications Prescriptions: Ferrous Sulfate [Feosol 325 MG tab] 325 mg PO BID #60 tablet Vit-Fe Fumar-FA [ Vitamin] 1 each PO QDAY #30 tablet - Provider Discharge Summary Activity: routine, no sex for 6 weeks, no heavy lifting 4 weeks, no strenuous exercise, other (NO SEX) Diet: routine Instructions: routine Additional instructions: [] Smoking cessation referral if applicable(refer to patient education folder for contact #) [] Refer to [facility]'s [facility] Booklet Call your doctor immediately for: * Fever > 100.5 * Heavy vaginal bleeding ( >1 pad per hour) * Severe persistent headache * Shortness of breath * Reddened, hot, painful area to leg or breast * Drainage or odor from incision. * Keep incision clean and dry at all times and follow doctor's instructions regarding bathing/showering - Follow up plan Follow up: PRIMARY CARE, [Primary Care Provider] - 3-5 Days CARINE SIFUENTES MD [Staff Physician] - 7 Days NARCISA STEVENSON MD [Staff Physician] - 7 Days
[2018-07-18 20:16] VITALS: BP 143/95
[2018-07-18] MEDS ORDERED: PEPCID PO SCH (22:00)
== END 2018-07-18 20:38 | disposition home or self-care (01) | DRG 778 ==
LOC: ED 07:48 → OB 11:14 → LD 13:10
PROVIDERS: ADMIT Obstetrics & Gynecology; ATTEND Obstetrics & Gynecology
DX: O20.0 Threatened abortion (principal); O99.212 Obesity complicating pregnancy, second trimester; E66.01 Morbid (severe) obesity due to excess calories; O99.012 Anemia complicating pregnancy, second trimester; D64.9 Anemia, unspecified; Z3A.16 16 weeks gestation of pregnancy; Z68.41 Body mass index [BMI] 40.0-44.9, adult; Z79.82 Long term (current) use of aspirin; Z79.899 Other long term (current) drug therapy; O10.912 Unspecified pre-existing hypertension complicating pregnancy, second trimester; O20.9 Hemorrhage in early pregnancy, unspecified
CPT/HCPCS: 36415; 76805; 76815; 76816; 80053; 81001; 84702; 85025; 85027; 85610; 85730; 86850; 86900; 86901; 87210; 87591; 96374; 96375; J2270; J2405; J7030; J7120